=== PATIENT | male | born 1985 | race Caucasian/White ===

== ENCOUNTER 2018-12-28 13:42 | Emergency (ER) | payer OTHER ==
[2018-12-28] MEDS ORDERED: Lidocaine 1% 20 ML MDV INFILT ONE (13:43)
[2018-12-28] MEDS ORDERED: Diphtheria,Pertussis(Acell),Tetanus Vaccine 0.5 ML SDV IM ONE (14:53)
--- NOTE | 2018-12-28 14:53 | CR ---
INDICATION: DIP joint injury, caught in a pully, not active. LEFT HAND: Three views of the left hand revealed absence of most of the distal phalanx of the index finger, compatible with previous injury. There is some soft tissue irregularity at the tip of the 5th finger, compatible with soft tissue injury. No underlying fracture, dislocation, or other significant bone or joint abnormality was identified. Sclerotic densities are noted at the proximal metaphysis of the proximal phalanx of the 5th finger and the distal metaphysis of the 5th metacarpal. These both are compatible with benign bone islands. IMPRESSION: No acute fracture or dislocation. MTDD
--- NOTE | 2019-01-01 12:02 | EDM.PDOC ---
ED HPI GENERAL MEDICAL PROBLEM - General Chief Complaint: Laceration Stated Complaint: L HAND INJURY Time Seen by Provider: 12/28/18 14:10 Source of Information: Reports: Patient History Limitations: Reports: No Limitations - History of Present Illness INITIAL COMMENTS - FREE TEXT/NARRATIVE: patient was working on a piece of equipment and his glove got caught, caused injury to finger. Heavy tire came down on top of it. Minimal bleeding, not too painful but hurts some. No other injury. Last tetanus 10 yrs ago. No pain in hand, no numbness or tingling, no other injuries or concerns. Healthy. left fifth finger Pain Score (Numeric/FACES): 4 - Related Data Allergies Allergy/AdvReac Type Severity Reaction Status Date / Time No Known Allergies Allergy Verified 12/28/18 14:00 Home Meds: Home Meds NK [No Known Home Meds] 12/28/18 [History] Past Medical History - Past Health History Medical/Surgical History: Denies Medical/Surgical History Social & Family History - Family History Family Medical History: Noncontributory - Tobacco Use Smoking Status *Q: Current Every Day Smoker Years of Tobacco use: 10 Packs/Tins Daily: 1 ED ROS GENERAL - Review of Systems Review Of Systems: ROS reveals no pertinent complaints other than HPI. ED EXAM, GENERAL - Physical Exam Exam: See Below Free Text/Narrative:: General: alert, pleasant no acute distress. Left hand is missing tip of index finger. There is a <0.5cm laceration around the lateral side and some skin tearing, appears also to be a slight defect at the base of the nail. Wound minimally contaminated with no obvious foreign bodies. Rest of hand appears normal, strength +5/5 in hand with no deficits, good pulses, no numbness. ED GENERAL MEDICAL PROCEDURES - Laceration/Wound Repair Left Distal Digit - 5th (Baby) Appearance: Superficial, Subcutaneous Distal NVT: Neuro & Vascular Intact, No Tendon Injury Anesthetic Type: Digital Local Anesthesia - Lidocaine (Xylocaine): 1% Plain Local Anesthetic Volume: 2cc Skin Prep: Chlorhexidine (Hibiciens) Saline irrigation (cc's): 100 Exploration/Debridement/Repair: Wound Explored, Minimal Debridement, No Foreign Material Found Closed with: Sutures Suture Size: 4-0 # of Sutures: 1 Suture Type: Nylon, Interrupted Sterile Dressing Applied: Nurse Tetanus Status Addressed: Yes Complications: No Progress/Comments: wound lenth 4mm, minimal subcutanous tissue visible with no other underlying structures exposed. Dermabond applied at end of wound and around nail where the skin was too abraded to place additional stitch. Course - Vital Signs Text/Narrative:: xray reviewed, no daryl injury or foreign body seen soaked in hibiclens and rinsed with sterile saline repaired as per laceration note Last Recorded V/S: Last Vital Signs Temp 36.6 C 12/28/18 16:25 Pulse 68 12/28/18 16:25 Resp 16 12/28/18 16:25 BP 140/80 12/28/18 16:25 Pulse Ox 97 12/28/18 16:25 - Orders/Labs/Meds Meds: Medications Discontinued Medications Generic Name Dose Route Start Last Admin Trade Name Freq PRN Reason Stop Dose Admin Diphtheria/Tetanus/Acell Pertussis 0.5 ml 12/28/18 14:53 12/28/18 15:04 Adacel IM 12/28/18 14:54 0.5 ml .ONCE ONE Administration Departure - Departure Time of Disposition: 16:00 Disposition: Home, Self-Care 01 Condition: Good Clinical Impression: Laceration - Discharge Information *PRESCRIPTION DRUG MONITORING PROGRAM REVIEWED*: Not Applicable *COPY OF PRESCRIPTION DRUG MONITORING REPORT IN PATIENT BINA: Not Applicable Instructions: Wound Care, Adult, Stitches, Michael, or Adhesive Wound Closure, [id number], Incision Care, Adult, [id number] Referrals: PCP,Not In Area [Primary Care Provider] - Forms: ED Department Discharge Additional Instructions: suture removal in 10 days keep cover while working if you notice any s/s of infection, you may come back ED or see your primary care doctor
== END 2018-12-28 16:35 | disposition home or self-care (01) ==
LOC: FB.ED 13:42
DX: S61.217A Laceration without foreign body of left little finger without damage to nail, initial encounter (principal); F17.210 Nicotine dependence, cigarettes, uncomplicated; Z23 Encounter for immunization; W29.2XXA Contact with other powered household machinery, initial encounter
CPT/HCPCS: 12001; 73130; 90471; 90715; 99283; J2001; 12031; 73140-F4